=== PATIENT | male | born 1985 | race Caucasian/White ===

== ENCOUNTER 2020-12-01 00:56 | Emergency (ER) | payer SELFPAY ==
[~2020-12-01] VITALS: Ht 167.6 cm; Wt 92.5 kg
[2020-12-01 01:57] VITALS: BP 126/78; Ht 167.6 cm; Wt 92.5 kg
== END 2020-12-01 05:53 | disposition home or self-care (01) ==
LOC: ED 00:56
DX: S02.85XA Fracture of orbit, unspecified, initial encounter for closed fracture (principal); S00.12XA Contusion of left eyelid and periocular area, initial encounter; H11.32 Conjunctival hemorrhage, left eye; X58.XXXA Exposure to other specified factors, initial encounter; Y93.89 Activity, other specified; Y92.89 Other specified places as the place of occurrence of the external cause; Y99.8 Other external cause status